=== PATIENT | female | born 1960 | race Two or more races ===

== ENCOUNTER 2023-09-30 15:57 | Emergency (ER) | payer OTHER ==
[~2023-09-30] VITALS: Ht 167.6 cm; Wt 77.1 kg
[2023-09-30] MEDS ORDERED: SINGULAIR4 M1 (16:02)
== END 2023-09-30 18:55 | disposition home or self-care (01) ==
LOC: ER 15:58
DX: S00.93XA Contusion of unspecified part of head, initial encounter (principal); S00.83XA Contusion of other part of head, initial encounter; W18.39XA Other fall on same level, initial encounter; Y93.89 Activity, other specified; Y92.89 Other specified places as the place of occurrence of the external cause; Y99.9 Unspecified external cause status; Z88.6 Allergy status to analgesic agent; Z88.8 Allergy status to other drugs, medicaments and biological substances